=== PATIENT | female | born 1980 | race African-American/Black ===

== ENCOUNTER 2017-01-08 18:55 | Emergency (ER) | payer OTHER ==
[~2017-01-08] VITALS: Ht 165.1 cm; Wt 76.2 kg
--- NOTE | ~2017-01-08 | CT2 ---
[facility] A Service of [facility] RADIOLOGY TEXT RESULTS PATIENT: ATSHI WOODSON LOCATION: [facility] : 84 UNIT #: [id number] AGE: [address]: Spenser Beasley MD SEX: F ORDER DR: [id number] [facility] [address] [place], [place] [address] [id number] MR#: [id number] Acc #: [id number] NAME: TASHI WOODSON : 1980 SEX: F STUDY DATE/TIME: 01/08/2017 21:57 UNIT: [facility] ROOM: STUDY DESCRIPTION: CT Abd and Pelv W Cont Attending Physician: Spenser Beasley M.D. Ordering Physician: Spenser Beasley M.D. Primary Care Physician: Primary Care Physician No MEDICAL IMAGING REPORT This report is preliminary unless electronic signature is present EXAM Abdomen and pelvis CT with contrast HISTORY Lower abdominal pain, back pain and nausea today. History of cancer not otherwise specified by the patient. COMMENT CT of the abdomen and pelvis performed in the axial plane during the intravenous administration of 100 mL of Isovue-370. No oral contrast media seen. Sagittal and coronal reformatted images obtained. This CT examination was performed with one or more of the following radiation dose reduction techniques: automatic exposure control, adjustment of mA and/or kV according to patient size, and iterative reconstruction. No prior imaging of the abdomen and pelvis at this institution. Evaluation lung bases shows no abnormality. Tiny low-attenuation liver lesions are most likely cysts but given history of malignancy, please correlate further with the type of cancer indicated in the history. The largest of these tiny lesions is about 5 mm dimension right anterior lobe liver. Gallbladder, spleen, adrenal glands, pancreas normal. Kidneys normal. Abdominal aorta within normal limits. Evaluation of the pelvis shows partially decompressed urinary bladder. Visualized appendix is unremarkable. There is some subtle stranding in the mesentery which is very nonspecific. It might be of no further significance clinically but again please correlate with type of malignancy in this patient. There is nothing to suggest bowel obstruction. There is no free intraperitoneal air. No drainable fluid collection is suspected. Spine is unremarkable. Uterus and adnexal structures unremarkable. Subtle levoconvex scoliosis on the coronal reformatted imaging could be positional. [facility] A Service of [facility] RADIOLOGY TEXT RESULTS PATIENT: TASHI WOODSON LOCATION: [facility] : 84 UNIT #: [id number] AGE: [address]: Spenser Beasley MD SEX: F ORDER DR: IMPRESSION 1. No bowel obstruction, free air or drainable fluid collection is suspected. The visualized appendix is unremarkable. 2. There are tiny low-attenuation lesions in the liver. Given the patient's age group and the size, they are likely benign. The patient does however give a history of cancer not otherwise specified. Please correlate with the type of cancer to determine whether or not these liver lesions should be further evaluated. 3. There is mild stranding in the mesentery also a nonspecific finding. It may be of no further significance clinically but again it would be most important to know what kind of cancer the patient previously had. Dictated by... Kimberly Barrios M.D. THIS IS AN ELECTRONICALLY VERIFIED REPORT Kimberly Barrios M.D. at 01/09/2017 11:19 AM JAKE/jd TD: 01/09/2017 09:51 JOB #: [id number] MEDICAL IMAGING REPORT Page 1 of 1 COPY
[~2017-01-08 18:55] MED LIST: ALBUTEROL17 GM; ALBUTEROL17 GM INH; GLEEVAC; GLEEVEC100 MG PO; HYDROXYUREA500 M1 PO; LO/OVRAL-281 TAB PO; LORTAB 10-5001 EACH PO; PERCOCET5/325 PO; PHENERGAN PO; PRENATAL VITAMI1 TA3 PO; ROBITUSSIN100 MG/51 PO; SENOKOT PO; TASIGNA150 MG PO; ZITHROMAX PO; ZOFRAN PO
[2017-01-08 19:30] LABS: URINE SOURCE CLEAN CATCH
[2017-01-08 19:34] LABS: URINE APPEARANCE CLEAR; URINE BILIRUBIN NEG (NEG); URINE BLOOD 1+ (NEG); URINE COLOR YELLOW; URINE GLUCOSE NEG (NEG); URINE KETONE NEG (NEG); URINE LEUKOCYTE ESTERASE NEG (NEG); URINE NITRATE NEG (NEG); URINE PH 6.5 (5-8); URINE PROTEIN NEG (NEG); URINE SPECIFIC GRAVITY 1.007 (1.003-1.035); URINE UROBILINOGEN 0.2 MG/DL (NEG)
[2017-01-08 19:37] LABS: URINE BACTERIA AUWI NEG (NEGATIVE); URINE SQUAMOUS EPITHELIAL CELL NONE SEEN /[HPF]; UWBCS1 AUWI 0-2 (0-5)
[2017-01-08 19:52] LABS: CULTURE INDICATED? NO
[2017-01-08 19:57] LABS: BASOPHIL% 0.4 % (0-2.5); EOSINOPHIL# 0.1 X10e3 (0-0.7); EOSINOPHIL% 1.5 % (0.0-7.0); HEMATOCRIT 37.2 % (35.0-45.0); HEMOGLOBIN 12.1 gm/dL (12.0-16.0); LYMPHOCYTE# 2.4 X10e3 (1.0-3.5); LYMPHOCYTE% 31.6 % (17.0-45.0); MEAN CELL VOLUME 78.8 FL (83-96); MEAN CORPUSCULAR HEMOGLOBIN 25.6 PG (28-34); MEAN CORPUSCULAR HGB CONC 32.5 g/dL (30-36); MONOCYTE# 0.6 X10e3 (0-1.0); MONOCYTE% 7.7 % (3.0-12.0); NEUTROPHIL# 4.4 X10e3 (1.5-7.1); NEUTROPHIL% 58.8 % (40-75); PLATELET COUNT 246 X10e3 (140-420); RED BLOOD COUNT 4.72 X10e (3.90-5.30); RED CELL DISTRIBUTION WIDTH 17.1 % (11.0-15.5); WHITE BLOOD COUNT 7.4 X10e3 (4.0-10.5)
[2017-01-08 20:04] LABS: DIFF IND NO
[2017-01-08 20:26] LABS: BILIRUBIN,TOTAL 0.9 mg/dL (0.2-2.0); CALCIUM SERUM 8.8 mg/dL (8.4-10.2); CREATININE SERUM 0.9 mg/dL (0.6-1.4); GLOM FILT RATE Estimated 96.8 mL/min (>60); POTASSIUM 3.3 mmol/L (3.5-5.1); PROTEIN TOTAL SERUM 7.6 g/dL (6.0-8.3)
== END 2017-01-08 22:36 | disposition home or self-care (01) ==
LOC: CED 18:55
PROVIDERS: Emergency Medicine
DX: R10.84 Generalized abdominal pain (principal); R11.0 Nausea; Z88.2 Allergy status to sulfonamides
CPT/HCPCS: 36415; 74177; 80053; 81003; 83690; 84703; 85025; 96374; 99284; J2405; Q9967